=== PATIENT | male | born 1960 ===

== ENCOUNTER 2018-11-16 22:36 | Emergency (ER) | payer MEDICAID ==
[2018-11-16] MEDS ORDERED: Sodium Chloride 0.9% 1,000 ML IV ONE (22:58)
--- NOTE | 2018-11-16 22:58 | C.PDOC ---
History Of Present Illness 51 year old male is brought to the ED by [facility] (formerly [facility]) for evaluation of alcohol intoxication. Patient has string alcohol on breath, refusing to provide name/ Patient denies SI/HI, hallucinations, injury, fall, trauma. Time Seen by Provider: 11/16/18 22:58 Chief Complaint (Nursing): Substance Abuse History Per: Patient History/Exam Limitations: intoxication Onset/Duration Of Symptoms: Hrs Current Symptoms Are (Timing): Still Present Suicide/Self Injury Attempted (Context): None Modifying Factor(s): Alcohol Associated Symptoms: denies: Depression, Suicidal Thoughts, Suicidal Plan Recent travel outside of the [place]: No Additional History Per: Patient, Law Enforcement Past Medical History Reviewed: Historical Data, Nursing Documentation, Vital Signs Vital Signs: Last Vital Signs Temp 97.4 F L 11/16/18 22:52 Pulse 88 11/16/18 22:52 Resp 22 11/16/18 22:52 BP 134/78 11/16/18 22:52 Pulse Ox 95 11/16/18 22:52 - Medical History PMH: No Chronic Diseases Surgical History: No Surg Hx Family History: States: No Known Family Hx - Social History Hx Alcohol Use: No Hx Substance Use: No - Immunization History Hx Tetanus Toxoid Vaccination: No Hx Influenza Vaccination: No Hx Pneumococcal Vaccination: No Review Of Systems Constitutional: Negative for: Fever, Chills Cardiovascular: Negative for: Chest Pain Respiratory: Negative for: Shortness of Breath Gastrointestinal: Negative for: Nausea, Vomiting, Abdominal Pain Skin: Negative for: Rash Psych: Negative for: Depression, Suicidal ideation Physical Exam - Physical Exam Appears: Non-toxic, No Acute Distress, Other (AOB) Skin: Warm, Dry Head: Normacephalic Eye(s): bilateral: Normal Inspection Neck: Supple Chest: Symmetrical Cardiovascular: Rhythm Regular Respiratory: No Rales, No Rhonchi, No Wheezing Gastrointestinal/Abdominal: Soft, No Tenderness, No Guarding, No Rebound Back: Normal Inspection Extremity: Bilateral: Atraumatic, Normal Color And Temperature, Normal ROM Neurological/Psych: Oriented x3, No Normal Speech (slight slurred due to alcohol), Normal Motor, Normal Sensation Gait: Steady ED Course And Treatment - Laboratory Results Result Diagrams: 11/16/18 23:35 ECG: Interpreted By Me, Viewed By Me O2 Sat by Pulse Oximetry: 95 (ON RA) Pulse Ox Interpretation: Normal - Radiology CXR: Interpreted by Me, Viewed By Me CXR Interpretation: No: Infiltrates, Fracture, Pnemothorax - CT Scan/US CT head Other Rad Studies (CT/US): Read By Radiologist, Radiology Report Reviewed CT/US Interpretation: CT SCAN OF THE BRAIN WITHOUT IV CONTRAST. CLINICAL INDICATION: Rule out bleed. TECHNIQUE: Axial images of the brain obtained without IV contrast administration. Normal size of the ventricles and extra- axial spaces for the patient's age. Normal white matter tracts of the supratentorial brain. Normal basal ganglia and thalami. Normal brainstem. Normal cerebellum. There is no demonstrated extra-axial, intraparenchymal, or intraventricular hemorrhage. There are no findings of an acute ischemic infarction. Normal calvarium. There is no demonstrated fracture. Normal soft tissue structures. Normal visualized paranasal sinuses. IMPRESSION: Normal unenhanced CT scan of the brain. . Electronically signed on Nov 17, 2018 1:48:49 AM EST by: Mandi Zhang M.D., Certified by VIOLA, MSK, Neuroradiology Progress Note: Plan: - VBG. - CT head. - EKG. - Labs. - CXR. - IV fluids. - Blood culture. - UA Reevaluation Time: 04:59 Reassessment Condition: Improved Disposition Counseled Patient/Family Regarding: Studies Performed, Diagnosis, Need For Followup - Disposition Referrals: [facility] [Outside] Disposition: HOME/ ROUTINE Disposition Time: 22:58 Condition: FAIR Instructions: Polysubstance Abuse (DC) Forms: [facility] ([place]) - Clinical Impression Clinical Impression: Polysubstance abuse - Scribe Statement The provider has reviewed the documentation as recorded by the Scribe Steve Peña All medical record entries made by the Scribe were at my direction and personally dictated by me. I have reviewed the chart and agree that the record accurately reflects my personal performance of the history, physical exam, medical decision making, and the department course for this patient. I have also personally directed, reviewed, and agree with the discharge instructions and disposition.
[2018-11-16 23:41] LABS: BASO % 0.7 % (0.0-2.0); EOS % 0.5 % (0.0-4.0); HEMOGLOBIN 17.6 g/dL (12.0-18.0); LYMPH # 2.1 K/uL (1.0-4.3); LYMPH % 39.1 % (20.0-40.0); MEAN CELL VOLUME 88.8 fL (80.0-94.0); MEAN CORPUSCULAR HEMOGLOBIN 30.4 pg (27.0-31.0); MEAN CORPUSCULAR HGB CONC 34.2 g/dL (33.0-37.0); MEAN PLATELET VOLUME 7.5 fL (7.2-11.7); MONO # 0.3 K/uL (0.0-0.8); MONO % 5.7 % (0.0-10.0); NEUT # 2.9 K/uL (1.8-7.0); RBC 5.8 Mil/uL (4.40-5.90); URINE BILIRUBIN NEGATIVE (NEGATIVE); URINE BLOOD NEGATIVE (NEGATIVE); URINE CLARITY Clear (Clear); URINE COLOR Colorless (YELLOW); URINE GLUCOSE (UA) NORMAL (Normal); URINE LEUKOCYTE ESTERASE NEG Leu/uL (Negative); URINE PROTEIN NEGATIVE (NEGATIVE); URINE UROBILINOGEN NORMAL mg/dL (0.2-1.0); WHITE BLOOD COUNT 5.3 K/uL (4.8-10.8)
[2018-11-16 23:55] LABS: BARBITURATES, UR NEGATIVE (NEGATIVE); BENZODIAZEPINES, UR NEGATIVE (NEGATIVE); OPIATES, UR NEGATIVE (NEGATIVE); PHENCYCLIDINE, UR NEGATIVE (NEGATIVE)
[2018-11-17 01:42] VITALS: TEMP 98.1
[2018-11-17 05:01] VITALS: BP 132/81; PULSE 67; RESP 20; O2SAT 100
--- NOTE | 2018-11-18 09:33 | RAD ---
Chest x-ray single frontal view History: Shortness of breath. COMPARISON: None available. Findings: Moderate venous congestion. Patchy increased markings at the left lung base and right infrahilar region. Enlarged ectatic aorta. Cardiomegaly. Degenerative changes in the spine and shoulders. Impression: Moderate venous congestion. Patchy increased markings at the left lung base and right infrahilar region. Enlarged ectatic aorta. Cardiomegaly.
--- NOTE | 2018-11-18 09:34 | CT ---
Date of service: 11/17/2018 PROCEDURE: CT HEAD WITHOUT CONTRAST. HISTORY: Substance abuse. Headache. Evaluate for hemorrhage. COMPARISON: None available. TECHNIQUE: Axial computed tomography images were obtained through the head/brain without intravenous contrast. Radiation dose: Total exam DLP = 961.32 mGy-cm. This CT exam was performed using one or more of the following dose reduction techniques: Automated exposure control, adjustment of the mA and/or kV according to patient size, and/or use of iterative reconstruction technique. FINDINGS: HEMORRHAGE: No intracranial hemorrhage. BRAIN: No mass effect or edema. No atrophy or chronic microvascular ischemic changes. Punctate calcification in the posterior right frontal parietal region on series 4, image 37. VENTRICLES: Unremarkable. No hydrocephalus. CALVARIUM: Bowing deformity of the right zygomatic arch. PARANASAL SINUSES: Unremarkable as visualized. No significant inflammatory changes. MASTOID AIR CELLS: Unremarkable as visualized. No inflammatory changes. OTHER FINDINGS: Streak artifact in the posterior fossa limits evaluation. IMPRESSION: No acute intracranial abnormality. Streak artifact in the posterior fossa limits evaluation. Bowing deformity of right zygomatic arch may represent acute osseous injury. Clinical correlation. If symptoms persist, consider correlation with MRI. A preliminary report was generated at 1:48 a.m. on 11/17/[address] Mandi Zhang from [facility].
== END 2018-11-17 05:00 | disposition home or self-care (01) ==
LOC: C.ER 22:36 → EDBD 22:36 → MERGE 22:36 → C.ER 11-17 05:00
DX: F19.10 Other psychoactive substance abuse, uncomplicated (principal)